=== PATIENT | female | born 1955 ===

== ENCOUNTER → 2017-07-30 | Day surgery (SDC) | payer MEDICARE ==
--- NOTE | 2017-07-23 16:46 | PCM.ANEPRE ---
Anesthesia Pre-Op Review Reason for Review: PATIENT CONCERNED ABOUT TONGUE RELAXATION CAUSING AIRWAY OBSTRUCTION Anesthesia Recommendations: Proceed with Procedure Additional Comments Annika Birdop RN told me the following: Patient states that when she gets relaxed her tongue falls back and obstructs her epiglottis. Previous anesthetic records were reviewed and the anesthetic course was normal. Assess patient on DOS and reassure patient that her airway will be safeguarded. Ross Walker MD Jul 23, 2017 16:46
[~2017-07-30] VITALS: Ht 160 cm; Wt 56.8 kg
[~2017-07-30] MED LIST: ALBU8.5H2 INHALATION; ALBUTEROL INH; ASCO500C6 PO; ASPI-973 PO; CEPH500T PO; CETI10CA PO; CHOL500050 PO; DIVA125T2 PO; DIVA250T12 PO; DIVA500T14 PO; DOXA4TAB2 PO; Dexamethasone 4 mg/mL Inj IVPUSH PRN; Dexamethasone Inj 20 MG in Dextrose 5%-Pha MIX 50 ML IV SCH; EPHEDrine Sulfate 50 mg/mL Inj IVPUSH PRN; EPHEDrine/NS 5 mg/mL 5 mL Syringe ONE; EPIN0.3P2 IJ; FLUT1DIS5 IH; FLUT9.9S NS; GABA800T2 PO; GUAI400T57 PO; GUAI600T2 PO; HYDR-3740 PO; HYDR50TA76 PO; HYDROcodone-APAP 7.5-325 mg/15 mL 15 mL Solution ONE; HYDROmorphone 1 mg/mL Inj IVPUSH PRN; IPRAT INH; LEVO137T18 PO; LIP40 PO; LIT150 PO; LITH300T PO; LITH600C PO; LOPE2TAB32 PO; Lactated Ringer's 1,000 ML IV ONE; Lactated Ringer's 1,000 ML IV SCH; Lactated Ringer's 500 ML IV PRN; Lidocaine 1% Buffered 10 mL Syringe NERVEBLOCK ONE; Lidocaine 2%-Epi 1:100,000 20 mL Inj INFILTRATE ONE; METH750T3 PO; MULT-1065 PO; MetoCLOpramide 5 mg/mL 2 mL Inj IVPUSH PRN; NICO10CA IH; NICO2LOZ PO; NITR0.4T SL; NITRO SPRAY SPRAY; NYST15CR TP; OMEP20TA86 PO; ONDA8TAB10 PO; Ondansetron 2 mg/mL 2 mL Inj IVPUSH PRN; Ondansetron 2 mg/mL 2 mL Inj ONE; POTA20TA7 PO; PRAZ2CAP2 PO; PRE20 PO; PRIM50TA PO; PSYL660P17 PO; Phenylephrine 10,000 mCg/mL Inj IVPUSH PRN; Propofol 10,000 mCg/mL 20 mL Inj ONE; TIOT18CA3 IH; TRAZ-118 PO; fentaNYL-PF 50 mCg/mL 2 mL Inj IVPUSH PRN; fentaNYL-PF 50 mCg/mL 2 mL Inj ONE
[2017-07-30 09:50] VITALS: BP 125/73; PULSE 81; RESP 18; O2SAT 94
--- NOTE | 2017-07-30 10:16 | PCM.HPANE ---
Patient Data Date of Service: Jul 30, 2017 Surgeon Admitting Provider: Attending Provider:Geovany Vinson MD Primary Care Physician:Mable Maurer DO Other Provider:Chad Mcgowan Anesthesia Reason for Visit Chronic Sinusitis CHRONIC SINUSITIS Ht/WT & BMI Height (Feet): 5 Height (Inches): 3.00 Weight (Kilograms): 56.8 Body Mass Index 22.00 Allergies Coded Allergies: [place] (Verified Allergy, Severe, Anaphylaxis, 07/23/17) Erythromycin Lactobionate (Verified Allergy, Severe, Hives/ rash, 07/23/17) MUSHROOM (Verified Allergy, Severe, Anaphylaxis, 07/23/17) adhesive (Verified Allergy, Severe, rash, 07/23/17) aripiprazole (Verified Allergy, Severe, Anaphylaxis, 07/23/17) lamotrigine (Verified Allergy, Severe, severe rash, 07/23/17) latex (Verified Allergy, Severe, Anaphylaxis, 07/23/17) amoxicillin (Verified Adverse Reaction, Severe, n&v (has had cefazolin w/ o problems), 07/23/17) clavulanic acid (Verified Adverse Reaction, Severe, n&v, 07/23/17) varenicline tartrate (Verified Adverse Reaction, Severe, nausea, vomiting , 07/23/17) codeine (Verified Adverse Reaction, Unknown, nausea/ vomiting, 07/23/17) Uncoded Allergies: [place] (Allergy, Severe, Anaphalaxis, 05/06/16) Past Anesthesia History Anesthesia History: Positive for:: Anesthesia Reactions (tongue prolapses over trachea- "every time"), Denies:: Abnormal Airway, Difficult Intubation, Fam Anesthesia Reaction, Fam Malignant Hypertherm, Malignant Hyperthermia Diabetes History Hx Diabetes?: No MRSA MRSA: No Medications Blood Thinner: Aspirin Active Scripts Loperamide 2 Mg Tablet2 Mg PO Q4H PRN For Diarrhea or Loose Stool #10 TABLET Prov:Jay Patel MD 10/06/16 Ondansetron ODT 8 Mg Tab.rapdis8 Mg PO Q4H PRN For Nausea #10 TABLET Prov:Jay Patel MD 10/06/16 Albuterol HFA (Proair HFA)8.5 Gm Hfa.aer.ad2 Puffs INHALATION Q4H #1 INHALER Prov:Omid De La Cruz MD 10/04/16 Cephalexin 500 Mg Chyzrf011 Mg PO TID #30 TABLET Ref 0 Prov:Omid De La Cruz MD 10/04/16 Prednisone (PredniSONE)20 Mg Sphfbf06 Mg PO TID #15 TABLET Prov:Omid De La Cruz MD 10/04/16 Reported Medications Ravenel Carbonate 300 Mg Tablet.er200 Mg PO evening 07/30/17 [place] Carbonate 300 Mg Tablet.er100 Mg PO am 07/30/17 Guaifenesin (Mucinex)600 Mg Tablet.er600 Mg PO BID 07/30/[address] (Depakote DR)125 Mg Brundr262 Mg PO DAILY PRN PRN Ref 0 Swallowed whole without chewing to avoid local irritation of the mouth and throat. 09/25/16 Ravenel Carbonate 150 Mg Cvcnwyt685 Mg PO DAILY PRN PRN 09/25/16 Prazosin 2 Mg Capsule2-4 Mg PO HS PRN AD 09/25/16 [Nitro Waterflow] No Conflict Oiqxc664 Mcg SPRAY PRN 09/25/16 Nitroglycerin SL (Nitrostat)0.4 Mg Tab.subl0.4 Mg SL Q5MIN PRN CHEST PAIN #1 BOTTLE 09/25/16 Nicotine (Nicotrol MDI Inhaler)10 Mg Cartridge1 Puff IH 6X/DAY PRN For Tobacco Withdrawal #1 INH Ref 0 09/25/16 Nicotine Polacrilex (Nicotine Lozenge)2 Mg Lozenge2 Mg PO Q2H PRN For Tobacco Withdrawal Ref 0 09/25/16 Psyllium Husk (Metamucil)3.4 Gram/5.4 Gram Yjycrz463 Gm PO DAILY 09/25/16 [Albuterol/Iprat Neb] No Conflict Check1 Dose INH TID PRN PRN 09/25/16 Multivits-Min/Iron/FA/Lutein (Centrum Silver Women Tablet)8 Mg Iron-400 Mcg-300 Mcg Tablet1 Each PO DAILY 09/25/16 Methocarbamol 750 Mg Cvnkdm299-2,500 Mg PO HS For Spasm Ref 0 05/05/16 Ascorbic Acid (Vitamin C)500 Mg Capsule.er500 Mg PO DAILY 10/29/15 Trazodone 100 Mg Irfwxj961 Mg PO HS Ref 0 10/29/15 Tiotropium [place] (Spiriva)18 Mcg Cap.w.dev18 Mcg IH DAILY #1 PKG Ref 0 10/29/15 Albuterol HFA (Proair HFA)8.5 Gm Hfa.aer.ad2 Puffs INHALATION Q4H #1 INHALER 10/29/15 Primidone 50 Mg Kslurj086 Mg PO BID 30 Days 10/29/15 Omeprazole 20 Mg Tablet.dr20 Mg PO DAILY 10/29/15 Levothyroxine (Levoxyl)137 Mcg Gpfufm798 Mcg PO DAILY Ref 0 10/29/15 Potassium Chloride ER (Klor-Con M20)20 Meq Albavb53 Meq PO DAILY Ref 0 10/29/15 Hydroxyzine HCl (HydrOXYzine Hcl)50 Mg Lypkpw85 Mg PO q12 hr PRN For Itching Ref 0 10/29/15 Hydrocodone-Acetaminophen 10-325 mg 1 Each Tablet1 Tablet PO q4-6hr PRN For Pain Ref 0 10/29/15 Gabapentin 800 Mg Wfnmqk861 Mg PO TID Ref 0 10/29/15 Epinephrine (Epipen 2-Harpreet)0.3 Mg/0.3 Ml Auto.injct0.3 Mg IJ PRN For Anaphyllaxis 10/29/15 Doxazosin (Cardura)4 Mg Tablet4 Mg PO HS Ref 0 10/29/15 Divalproex ER 500 Mg Tab.er.24h1,000 Mg PO HS Ref 0 *DAILY DOSING ONLY* Swallowed whole without chewing to avoid local irritation of the mouth and throat. 10/29/15 Divalproex ER 250 Mg Tab.er.06a794 Mg PO MORNING Ref 0 *DAILY DOSING ONLY* Swallowed whole without chewing to avoid local irritation of the mouth and throat. 10/29/15 Cholecalciferol (Vitamin D3) (Vitamin D3)50,000 Unit Zmdtjkp13,000 Unit PO q 2 weeks 10/29/15 Atorvastatin (Lipitor)40 Mg Gboyxh80 Mg PO DAILY Ref 0 10/29/15 Aspirin 81 Mg Njiqba50 Mg PO DAILY Ref 0 10/29/15 Fluticasone/Salmeterol (Advair 500-50 Diskus)1 Each Disk.w.dev1 Puff IH q12 hr # 1 DISK Ref 0 10/29/15 Discontinued Reported Medications [place] Carbonate 600 Mg Dmscbbk507 Mg PO HS 09/25/16 Nystatin/Triamcin (Nystatin-Triamcinolone Cream)15 Gm Cream..g.15 Gm TP BID PRN PRN 09/25/16 Cetirizine HCl (Zyrtec)10 Mg Qbjqlgg66 Mg PO HS #30 CAPSULE Ref 0 09/25/16 Guaifenesin 400 Mg Ilsafq088 Mg PO Q4H PRN PRN 30 Days 09/25/16 Fluticasone Propionate (Flonase Allergy Relief)50 Mcg/Actuation Waterflow.susp9.9 Ml NS TID PRN congestion 10/29/15 History History of ENT Problems?: Yes HEENT History: Positive for:: Cataracts (both eyes- not yet surgically treated ) Hearing Problem Sinus Problem (current admission problem) Denies:: Abnormal Airway Difficult Intubation Dysphagia TMJ Denture Type: None Teeth Condition: No Teeth Other HEENT Pertinent History: dentures do not fit- does not wear them Hx of Heart Problems?: Yes Cardiovascular History: Positive for:: Edema Denies:: AICD Abdominal Aortic Aneurism Atrial Fibrillation Congestive Heart Failure Heart Murmur Hypertension Irregular Heartbeat Hx of Respiratory Problem?: Yes Respiratory History: Positive for:: COPD Dyspnea Emphysema Oxygen Administration (1 L ) Pneumonia (not for last 15 years) Use of C-PAP Machine (uses 1L O2 at night with CPAP) Use of Inhalers / NEBS Denies:: Tuberculosis Hx Neurologic Problems?: Yes Neurological History: Positive for:: Headaches (one to two monthly) TIA (3 TIA's last one 1999 no residual) Denies:: CVA Multiple Sclerosis Parkinson's Disease Other Neurological Pertinent: 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 (hx of right breast mass- lumpectomy) Denies:: Currently Skin History: Denies:: History Skin Disorders? Pressure Ulcers Hx Musculoskeletal Problems?: Yes Musculoskeletal History: Positive for:: Back Injury (low back pain) Denies:: Degenerative Joint Fibromyalgia Joint Replacement Osteoarthritis (osteopenia- base of neck to hips) Systemic Lupus Hx of Psycho/Social Problems?: Yes Psycho Social History: Positive for:: Anxiety (PTSD) Bipolar Disorder Hx Depression Hx Surgeries?: Yes (bladder sling, sinus, umbilical hernia, right breast ) Hx Any Other Health Problems?: Yes Other History: Positive for:: Cancer (right breast ) Thyroid Disease Denies:: Endocrine Disease Hospitalization History Blood Transfusions: Positive for:: Accept Blood Products? Denies:: Blood Transfusions Hx Diabetes: No Hx Alcohol Use: YesAlcoholic Drinks Per Day: 1-2 drinks yearlyHx Substance Use : No Smoking Status: Current Every Day Smoker Have You Smoked inLast 12 mo: Yes (3-4 cigarettes daily) Stop/Bang Treated for Sleep Apnea?: Yes Do You Have a CPAP Machine?: Yes S-Snoring: Do You Snore Loudly: Yes T-Tired: feel tired, fatigued: Yes O-Obsered: Observed not breath: Yes P-Blood Pressure: treated: No B- Body Mass Index > 35 kg/m2: No A- Age over 50: Yes N- Neck Large Circumference: No G- Gender Male: No REBECCA Total Score: 4 REBECCA Category 1: Yes Risk Assessment Category Category 1A: Patient has history of documented sleep apnea, and HAS NOT received any narcotic, sedative or anesthesia administration during this stay. Category 1B: Patient has history of documented sleep apnea, and HAS received any narcotic , sedative or anesthesia administration during this stay Category 2: Patient has SUSPECTED Obstructive Sleep Apnea, and HAS received any narcotic , sedative or anesthesia administration during this stay. Category 3: Patient has SUSPECTED Obstructive Sleep Apnea and HAS NOT received narcotic, sedative or anesthesia administration during this stay. Category 4: Outpatient in Procedural Areas with known sleep apnea or who screen positive for High Risk via the STOP/BANG questionnaire. Exam Exam Vital Signs Vital Signs Date Time Temp Pulse Resp B/P Pulse Ox O2 Delivery O2 Flow Rate FiO2 07/30/17 09:50 36.6 81 18 125/73 94 Room Air 07/30/17 09:50 CPAP/BIPAP General Appearance: Alert, Oriented X3, Cooperative, No Acute Distress HEENT/AIRWAY: MP 2 Lungs: Clear to Auscultation, Normal Air Movement Heart: Exam Unremarkable, Regular Rate/Rhythm, No Murmurs/Rubs/Gallops Meds/Labs/Diagnostics Admission Meds Current Medications Lactated Ringer's (Lr) 1,000 ml @ 120 mls/hr Q8H20M ONCE IV Last administered on 07/30/17t 08:45; Start 07/30/17 at 05:00; Stop 07/30/17 at 13:19 Plan Impression Patient chart reviewed, patient interviewed and anesthestic plan with risks, benefits, and alternatives discussed, and informed consent obtained. NPO per Anesth. Guidelines: Yes ASA Physical Status: ASA3 Severe Disease Anesthetic Plan: GA Bene/Risks/Altern/Consents: Yes HP Complete Prior to Induction: Yes Paulo Barnett MD Jul 30, 2017 10:16
[2017-07-30 11:29] VITALS: BP 91/55; PULSE 68; RESP 12; O2SAT 100
[2017-07-30 11:33] VITALS: BP 101/62; PULSE 69; RESP 13; O2SAT 100
[2017-07-30 11:40] VITALS: BP 106/66; PULSE 72; RESP 14; O2SAT 100
--- NOTE | 2017-07-30 11:48 | OP ---
[address] [address] OPERATIVE REPORT PATIENT: SHEN MUÑOZ : 1955 MR#: [id number] ADMIT: 07/30/2017 JOB ID: [id number] DATE OF SURGERY: 07/30/2017 SURGEON: Geovany Vinson MD PREOPERATIVE DIAGNOSIS(ES): Chronic maxillary and ethmoid sinusitis. POSTOPERATIVE DIAGNOSIS(ES): Chronic maxillary and ethmoid sinusitis. PROCEDURE: Bilateral maxillary and ethmoid sinusotomies. HISTORY AND INDICATIONS: A 62-year-old woman with history of prior sinus surgery elsewhere in 2001 has chronic problems with infection. PROCEDURE AND FINDINGS: The patient taken to the operating room and placed supine position on the operating table. LMA anesthesia was induced. Face prepped and draped sterile fashion. With a 0-degree scope, the nose was inspected. There are uncinate processes intact bilaterally. There is thick mucopus coming from small maxillary ostia. There are some surgical changes and scarring in the ethmoidal area. The uncinate process and middle turbinate and residual ethmoidal areas injected with 2% lidocaine 100,000 epinephrine. Nose then packed with Afrin on cotton. After allowing adequate time for local anesthetic effect, the packing is removed. With the 0 and 30 degree scope, the up-biting instrument, and the microdebrider the uncinate processes were taken down bilaterally. Residual anterior and posterior ethmoid cells were opened. The dissection anteriorly continues until a good view was obtained into the nasofrontal duct. The natural ostium of the maxillary sinus was enlarged anteriorly and inferiorly with a backbiting instrument and microdebrider. Findings of copious inspissated mucopurulent material. This sinus mucosa throughout is diffusely inflamed. Once all areas were widely opened and hemostasis was obtained. The procedure was terminated. The patient is awake and extubated in the operative room and returned to recovery room in good condition. ESTIMATED BLOOD LOSS: Less than 50 cc. PATHOLOGY SPECIMENS: None. DRAINS: None. COMPLICATIONS: None.
--- NOTE | 2017-07-30 11:59 | PCM.ANEP1 ---
Post Anesthesia PACU Phase 1 Assessment Date of Service: Jul 30, 2017 Vital Signs Vital Signs Date Time Temp Pulse Resp B/P Pulse Ox O2 Delivery O2 Flow Rate FiO2 07/30/17 11:40 72 14 106/66 100 Simple Mask 10 07/30/17 11:33 69 13 101/62 100 Simple Mask 10 07/30/17 11:29 36.5 68 12 91/55 100 Simple Mask 10 07/30/17 09:50 36.6 81 18 125/73 94 Room Air 07/30/17 09:50 CPAP/BIPAP Anesthetic Administered: GA Level of Alertness: Sleeping, hard to arouse HADLEY's with Equal Strength: Yes Pain: No Nausea or Vomiting: No CV Function & Hydration Stable: Yes Airway Device: Oxygen Delivery: Simple Mask Lungs: Clear to Auscultation, Normal Air Movement PACU Phase 2 Assessment Complications: No Follow up Care: No Patient Instructions Provided: N/A Paulo Barnett MD Jul 30, 2017 11:59
[2017-07-30 12:16] VITALS: BP 141/80; PULSE 80; RESP 16; O2SAT 91
== END | disposition home or self-care (01) ==
LOC: SAS 08:33
PROVIDERS: ATTEND Otolaryngology Facial Plastic Surgery
DX: J32.2 Chronic ethmoidal sinusitis (principal); J32.0 Chronic maxillary sinusitis; R60.9 Edema, unspecified; J44.9 Chronic obstructive pulmonary disease, unspecified; R51 Headache; M54.5 Low back pain; F41.9 Anxiety disorder, unspecified; F31.9 Bipolar disorder, unspecified; F17.210 Nicotine dependence, cigarettes, uncomplicated; Z86.73 Personal history of transient ischemic attack (TIA), and cerebral infarction without residual deficits; Z79.82 Long term (current) use of aspirin; Z79.899 Other long term (current) drug therapy; Z79.52 Long term (current) use of systemic steroids; Z79.51 Long term (current) use of inhaled steroids; Z99.81 Dependence on supplemental oxygen
CPT/HCPCS: 31255; 31267; J2250; J2405; J2704; J3010; J7120